=== PATIENT | male | born 1960 | race Caucasian/White ===

== ENCOUNTER 2021-03-20 12:08 | Emergency (ER) | payer BC, SELFPAY ==
[2021-03-20 12:18] VITALS: BP 164/77; PULSE 85; RESP 16; TEMP 36.7; O2SAT 95; BMI 34.4
[2021-03-20] MEDS: Lidocaine HCl 1 % MPF 5 ML VIAL SUBCUT (13:09)
--- NOTE | 2021-03-20 13:47 | ED_ITS ---
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 Reports he is up-to-date on tetanus received 1 year ago. Denies any numbness or tingling or thoughts of foreign bodies or any other symptoms complaints or concerns at this time. Denies any bony tenderness. Onset (ago): minute(s) (Prior to arrival) Extremity Location: left: hand (Middle finger at the palmar/distal aspect does not involve nail) Place: home and outdoors Patient tetanus UTD: Yes Context: accidental Associated symptoms: pain Treatments prior to arrival: bandage Related Data Allergies Allergy/AdvReac Type Severity Reaction Status Date / Time No Known Allergies Allergy Verified 03/20/21 12:21 Review of Systems Review of Systems: Constitutional : No Fever, No Chills, Cardiovascular : No Chest Pain, No SOB Respiratory : No Dyspnea Gastrointestinal : No abdominal pain Musculoskeletal : No Joint Swelling Skin : positive skin laceration, No Foreign bodies, No rash, No surrounding erythema Neuro : No Weakness, No Numbness/tingling Psych : No SI/HI/thoughts of self injury Yes all other systems are reviewed and are negative FORMERLY [facility], [facility] Past Medical History Attestation statement: The following information was validated with the patient. Medical History Hypertension Social History Social History Advance Directives: Yes Advance Directives Information Provided: Yes Advance Directives on File: No Physical Exam Vital Signs: Vital Signs: Last Vital Signs Temp 98.0 F 03/20/21 12:18 Pulse 85 03/20/21 12:18 Resp 16 03/20/21 12:18 BP 164/77 H 03/20/21 12:18 Pulse Ox 95 03/20/21 12:18 Body Mass Index 34.4 vital signs have been reviewed as normal and appeared to be correct. Blood pressure hypertensive 164/77 Heart rate normal. Respiration rate normal. Temperature normal. Oxygen saturation normal. Appearance: Alert. Oriented X3. No acute distress. Head: Normal external exam. Normocephalic. Atraumatic. Eyes: PERRLA. EOMI. Conjunctiva and sclera normal. Eyelids normal. ENT:Pharynx normal. Uvula midline. Moist mucous membranes. Neck: Normal inspection. Neck supple. FROM. No adenopathy. Thyroid Normal. No meningeal signs. No neck mass noted. CVS: Normal heart rate and rhythm. Pulses normal throughout. Respiratory: No respiratory distress. Painless inspiration. Back: Full range of motion noted. Skin: To left hand middle finger palmar/distal aspect patient has a 2 cm flap laceration no active bleeding or foreign bodies or signs of infection noted. Otherwise the rest of the Skin is warm and dry. Normal skin color. Normal skin turgor. No rashes/lesions noted. Extremities: Extremities exhibit normal range of motion. Extremities nontender. Neuro: Oriented X 3. No motor deficit. No sensory deficit. Reflexes normal. Normal steady gait. No focal neuro deficits noted. Vascular: + radial pulses. Normal cap refill. No cyanosis noted to upper extremity nails. Course Course Course Narrative: Patient now status post laceration repair with 6 sutures placed. Patient tolerated procedure well. No complications. Patient does not have any bony tenderness and declined x-ray. Already up-to-date on tetanus. Will DC home with instructions return if any new or worsening symptoms to follow up in 10 days for suture removal. Patient understands agrees with this plan. [facility] - Wound/Laceration Medical Records Attestation: I reviewed the patient's medical records. Procedures Laceration Laceration 1: Site: hand (Middle finger palmar aspect distal aspect does not involve nail or nail bed) Side (If applicable): left Size (cm): 2 Description: flap and clean Depth: simple, single layer Local Anesthetic: lidocaine 1% Amount of anesthesia used (mL): 3 Pre-repair: wound explored, irrigated extensively and deep structures intact Skin layer closed with: nylon Size (cm): 5-0 Number of sutures: 6 Discharge Plan Discharge Clinical Impression: Laceration Patient Disposition: Home, Self-Care Instructions: Finger Laceration (ED) Referrals: Susan Stroud PA [Emergency Midlevel Provider] - 10 days (For suture removal you can come to this ER any other ER for any urgent care or your primary care provider although if he wants your primary care provider please call them ahead of time and let them know that he wants to have sutures removed) Print Language: Greek
== END 2021-03-20 14:01 | disposition home or self-care (01) ==
PROVIDERS: Emergency Provider Student in an Organized Health Care Education/Training Program
DX: S61.213A Laceration without foreign body of left middle finger without damage to nail, initial encounter (principal); W29.3XXA Contact with powered garden and outdoor hand tools and machinery, initial encounter; Y93.H2 Activity, gardening and landscaping; Y92.017 Garden or yard in single-family (private) house as the place of occurrence of the external cause; Y99.9 Unspecified external cause status
CPT/HCPCS: 12001; 99283; 99284